=== PATIENT | female | born 1950 | race Caucasian/White ===

== ENCOUNTER 2019-04-14 17:12 | Emergency (ER) | payer OTHER ==
[~2019-04-14] VITALS: Ht 149.9 cm; Wt 72.6 kg
[~2019-04-14 17:12] MED LIST: AVALIDE 150/12.1 TAB
== END 2019-04-14 20:54 | disposition home or self-care (01) ==
LOC: ER 17:12
DX: K29.70 Gastritis, unspecified, without bleeding (principal)

== ENCOUNTER 2019-06-25 17:49 | Emergency (ER) | payer OTHER ==
[~2019-06-25] VITALS: Ht 149.9 cm; Wt 72.6 kg
[2019-06-25] MEDS ORDERED: CARAFATE1 GM (18:16)
== END 2019-06-25 20:51 | disposition home or self-care (01) ==
LOC: ER 17:49
DX: K29.60 Other gastritis without bleeding (principal)

== ENCOUNTER 2023-04-01 16:27 | Emergency (ER) | payer OTHER ==
[~2023-04-01] VITALS: Ht 149.9 cm; Wt 72.1 kg
[~2023-04-01 16:27] MED LIST changes: +CARAFATE1 GM
[2023-04-01] MEDS ORDERED: HYDROCHLOROTHIA25 MG PO (17:04)
[2023-04-01] MEDS ORDERED: ATORVASTATIN CA10 MG PO (17:04)
[2023-04-01] MEDS ORDERED: AMLODIPINE BESYL5 MG PO (17:04)
== END 2023-04-01 20:21 | disposition home or self-care (01) ==
LOC: ER 16:27
DX: M77.8 Other enthesopathies, not elsewhere classified (principal)